=== PATIENT | male | born 1995 | race Two or more races ===

== ENCOUNTER 2017-04-09 11:37 | Emergency (ER) | payer OTHER ==
[2017-04-09 11:45] VITALS: BP 120/45; PULSE 57; RESP 16; TEMP 98.1; O2SAT 97
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
== END 2017-04-09 13:48 | disposition home or self-care (01) ==
DX: S09.90XA Unspecified injury of head, initial encounter (principal); S02.40EA Zygomatic fracture, right side, initial encounter for closed fracture; S00.81XA Abrasion of other part of head, initial encounter; S00.31XA Abrasion of nose, initial encounter; S60.511A Abrasion of right hand, initial encounter; S40.811A Abrasion of right upper arm, initial encounter; S60.512A Abrasion of left hand, initial encounter; V18.0XXA Pedal cycle driver injured in noncollision transport accident in nontraffic accident, initial encounter; Y92.410 Unspecified street and highway as the place of occurrence of the external cause; Y99.8 Other external cause status; Y93.55 Activity, bike riding

== ENCOUNTER 2017-12-31 12:13 | Emergency (ER) | payer OTHER ==
--- NOTE | 2017-12-31 12:52 | EDPHY ---
H & P Time Seen by Provider: 12/31/17 12:35 HPI/ROS: CHIEF COMPLAINT: Testicular pain HISTORY OF PRESENT ILLNESS: 22-year-old male presents to the emergency department by private vehicle complaining of left testicular pain. The patient has had a history of intermittent torsion although he has never required surgery. He has seen urologist for this type of pain in the past. He has also had epididymitis. He states last night around midnight he started having some pain in his left testicle which has since been persistent. He denies urinary symptoms. He denies pain with intercourse or penile discharge. No back pain. No other abdominal pain. No chest pain or difficulty breathing. REVIEW OF SYSTEMS: Constitutional: No fever, no chills. Eyes: No double or blurry vision. ENT: No sore throat. Respiratory: No cough, no shortness of breath. Cardiac: No chest pain. Gastrointestinal: No abdominal pain, vomiting or diarrhea. Genitourinary: Testicular pain as above. No dysuria. Musculoskeletal: No neck or back pain. Skin: No rashes. Neurological: No headache. Past Medical/Surgical History: Testicular torsion Social History: Single, [employer] student Smoking Status: Never smoked Physical Exam: General Appearance: Alert, no distress. Afebrile. No apparent distress. Eyes: Pupils equal and round. Extraocular motions are all intact. ENT: Mouth: Mucous membranes moist. Respiratory: No wheezing, rhonchi, or rales, lungs are clear to auscultation. Cardiovascular: Regular rate and rhythm. Gastrointestinal: Abdomen is soft and nontender, no masses, no rebound or guarding, bowel sounds normal. No CVA tenderness bilaterally. Genitourinary: Performed with nurseGisselle, at bedside. Circumcised penis. Both testicles are descended. No scrotal swelling. Diffusely tender to palpate in the left testicle. Nontender to palpate on the right. The patient is extremely tense guarded. Unable to appreciate cremasteric reflex on either side. Neurological: Alert and oriented x 3, cranial nerves II through XII grossly intact Skin: Warm and dry, no rashes. Musculoskeletal: Nontender to palpate along the cervical, thoracic or lumbar spine. Neck is supple. Extremities: Full range of motion and no peripheral edema. Psychiatric: Patient is oriented X 3, there is no agitation. Constitutional: Initial Vital Signs Temperature (C) 36.8 C 12/31/17 12:24 Heart Rate 83 12/31/17 12:24 Respiratory Rate 18 12/31/17 12:24 Blood Pressure 116/61 12/31/17 12:24 O2 Sat (%) 97 12/31/17 12:24 O2 Delivery Mode Room Air Allergies/Adverse Reactions: No Known Allergies Allergy (Unverified 12/31/17 12:26) Home Medications: Medication Instructions Recorded Bacitracin Ointment 1 jerry TP BID #1 tube 04/09/17 Doxycycline Hyclate [Doxycycline] 100 mg PO BID #20 cap 12/31/17 Medical Decision Making - Diagnostics Imaging Results: Imaging Impressions Testicular Ultrasound 12/31/17 12:36 Impression: No evidence of torsion. Tiny bilateral epididymal head cysts or spermatoceles. Findings and recommendations discussed with BERHANE MEDEL at 1339 hour, 2017. Imaging: Discussed imaging studies w/ call circuit worker Radiologist ED Course/Re-evaluation: 22-year-old male presents to the emergency department complaining of left testicular pain. He has had torsion in the past although has never required surgical repair. He has seen a urologist for this. He presents with left- sided testicular pain that began last night. Ultrasound reveals good blood flow to both testicles with no evidence of torsion. There was epididymal cyst noted. Clinically however I think this patient likely has epididymitis. He was extremely tender to palpate over the left epididymal sac. The patient is sexually active. He will be treated with ceftriaxone 250 mg IM and doxycycline 100 mg twice daily for 10 days. GC chlamydia cultures are also sent and are pending. Patient was given urology referral. Encouraged to return to the emergency department if any change in symptoms or if he feels worse in any way. Differential Diagnosis: Including but not limited to testicular torsion, epididymitis, urinary tract infection, kidney stone, sexually transmitted infection - Data Points Laboratory Results: 12/31/17 12/31/17 13:48 13:48 Urine Color YELLOW Urine Appearance CLEAR Urine pH 6.0 (5.0-7.5) Ur Specific [place] 1.019 (1.002-1.030) Urine Protein NEGATIVE (NEGATIVE) Urine Ketones NEGATIVE (NEGATIVE) Urine Blood NEGATIVE (NEGATIVE) Urine Nitrate NEGATIVE (NEGATIVE) Urine Bilirubin NEGATIVE (NEGATIVE) Urine Urobilinogen 4.0 EU H EU (0.2-1.0) Ur Leukocyte Esterase NEGATIVE (NEGATIVE) Urine RBC 3-5 /hpf H /hpf (0-3) Urine WBC 1-3 /hpf /hpf (0-3) Ur Epithelial Cells TRACE /lpf /lpf (NONE-1+) Urine Bacteria TRACE /hpf H /hpf (NONE SEEN) Urine Mucus TRACE /lpf /lpf (NONE-1+) Urine Glucose NEGATIVE (NEGATIVE) C.trachomatis RNA (TMA) Pending N.gonorrhoeae RNA (TMA) Pending Medications Given: Discontinued Medications Ceftriaxone Sodium (Rocephin Im Syringe) 250 mg IM EDNOW ONE PRN Reason: Protocol Stop: 12/31/17 14:15 Last Admin: 12/31/17 15:22 Dose: 250 mg Ibuprofen (Motrin) 600 mg PO EDNOW ONE Stop: 12/31/17 14:15 Last Admin: 12/31/17 14:33 Dose: 600 mg Departure - Departure Disposition: Home, Routine, Self-Care Clinical Impression: Testicular pain, left Condition: Fair Instructions: Epididymitis (ED), Testicle Pain (ED) Additional Instructions: Follow up with urologist as discussed. There is no evidence of torsion on ultrasound today. Your given a shot of ceftriaxone in the emergency department. Doxycycline 100 mg twice daily for 10 days. Supportive under shorts as discussed. Ice and scrotal elevation for comfort. Follow up with urologist as discussed. Call [phone] for the results of your gonorrhea and chlamydia testing which should be available in 48 hours. Referrals: Jaime Kolb MD [Medical Doctor] - 1-2 days without fail (Urologist on-call) Prescriptions: Doxycycline Hyclate [Doxycycline] 100 mg PO BID #20 cap
[2017-12-31] MEDS ORDERED: IBUPROFEN 600 MG TAB PO ONE (14:14)
[2017-12-31 15:27] VITALS: BP 119/58
[2018-01-03 14:02] LABS: GC AMPLIFICATION GENPROBE NEGATIVE (NEGATIVE)
== END 2017-12-31 15:27 | disposition home or self-care (01) ==
DX: N50.812 Left testicular pain (principal)
CPT/HCPCS: J0696